=== PATIENT | male | born 1955 | race Caucasian/White ===

== ENCOUNTER 2020-11-24 09:25 | Emergency (ER) | payer SELFPAY ==
[~2020-11-24] VITALS: Ht 170.2 cm; Wt 67.1 kg
[2020-11-24 12:08] VITALS: BP 120/76
== END 2020-11-24 12:17 | disposition home or self-care (01) ==
LOC: ER 09:25
DX: R31.9 Hematuria, unspecified (principal); N40.1 Benign prostatic hyperplasia with lower urinary tract symptoms; I10 Essential (primary) hypertension
CPT/HCPCS: 51702; 81002